=== PATIENT | male | born 1995 | race Caucasian/White ===

== ENCOUNTER 2017-12-18 18:16 | Emergency (ER) | payer MEDICAID, OTHER ==
[~2017-12-18] VITALS: Ht 182.9 cm; Wt 89.2 kg
[2017-12-18] MEDS ORDERED: ketorolac tromethamine 15mg/ml inj. IM ONE (20:05)
[2017-12-18 20:22] VITALS: BP 125/89
== END 2017-12-18 20:24 | disposition home or self-care (01) ==
LOC: ER 18:17
DX: M25.512 Pain in left shoulder (principal)
CPT/HCPCS: 96372; 99283; A4565; J1885